=== PATIENT | female | born 1945 | race Caucasian/White ===

== ENCOUNTER 2019-03-23 09:24 | Inpatient (IN) | payer MEDICARE ==
[~2019-03-23] VITALS: Ht 144.8 cm; Wt 49.0 kg
[2019-03-23] MEDS ORDERED: TIOT18 INH (09:41)
[2019-03-23] MEDS ORDERED: Amlodipine Besy10 MG PO (09:42)
[2019-03-23] MEDS ORDERED: OMEPRAZOLE MAGN20 M1 PO (09:42)
[2019-03-23] MEDS ORDERED: ZESTRIL40 MG PO (09:42)
[2019-03-23] MEDS ORDERED: Zoloft25 MG PO (09:43)
[2019-03-23] MEDS ORDERED: Lovastatin40 MG PO (09:43)
[2019-03-23] MEDS ORDERED: Ventolin/Prove6.7 GM INH (09:43)
[2019-03-23 10:05] LABS: BASOPHILS ABSOLUTE AUTO 0.02 K/mm3 (0.00-0.23); BASOPHILS PERCENT AUTO 0 % (0-2); EOSINOPHILS ABSOLUTE AUTO 0.01 K/mm3 (0.00-0.68); EOSINOPHILS PERCENT AUTO 0 % (0-6); Hematocrit 34.3 % (33.0-51.0); Hemoglobin 11.2 g/dL (11.5-16.0); IMMATURE GRAN ABSOLUTE AUTO 0.11 K/mm3 (0.00-0.10); IMMATURE GRAN PERCENT AUTO 1 % (0-1); LYMPHOCYTES ABSOLUTE AUTO 1.13 K/mm3 (0.84-5.20); LYMPHOCYTES PERCENT AUTO 9 % (21-46); MONOCYTES ABSOLUTE AUTO 0.87 K/mm3 (0.16-1.47); MONOCYTES PERCENT AUTO 7 % (4-13); Mean Corpuscular HGB 27.9 pg (26.0-34.0); Mean Corpuscular HGB Conc 32.7 g/dL (31.5-36.5); Mean Corpuscular Volume 86 fL (80-100); Mean Platelet Volume 10.7 fL (9.1-12.4); NEUTROPHILS ABSOLUTE AUTO 10.25 K/mm3 (1.96-9.15); NEUTROPHILS PERCENT AUTO 83 % (41-73); Platelet Count 213 K/mm3 (150-400); RDW Coefficient Variation 12.9 % (11.7-14.2); RDW Standard Deviation 40.6 fL (35.1-46.3); Red Blood Cell Count 4.01 M/mm3 (3.80-5.20); White Blood Cell Count 12.39 K/mm3 (4.00-11.30)
[2019-03-23 10:17] LABS: Alanine Aminotransfer (ALT/SGP 26 U/L (12-78); Albumin, Blood 2.8 g/dL (3.4-5.0); Albumin/Globulin Ratio 0.7 (0.8-1.8); Alk Phos 114 U/L (50-136); Anion Gap 10 mmol/L (6-16); Aspartate Aminotrans (AST/SGOT 17 U/L (12-37); Bilirubin, Total 0.7 mg/dL (0.1-1.0); Blood Urea Nitrogen 22 mg/dL (8-24); Bun/Creatinine Ratio 33.4 (12.0-20.0); CO2, Blood 24 mmol/L (21-32); Calcium, Blood 8.6 mg/dL (8.5-10.1); Chloride, Blood 110 mmol/L (98-108); Creatinine, Blood 0.66 mg/dL (0.40-1.00); Globulin, Blood 4.3 g/dL (2.2-4.0); Glomerular Filtration Rate >60 (60-); Glucose, Blood 125 mg/dL (70-99); Potassium, Blood 3.4 mmol/L (3.5-5.5); Sodium, Blood 144 mmol/L (136-145); Total Protein, Blood 7.1 g/dL (6.4-8.2); Troponin I <0.015 ng/mL (0.000-0.040)
[2019-03-23] MEDS ORDERED: INCRUSE ELLI62.5 MCG INH (12:32)
[2019-03-23] MEDS ORDERED: Aspir 8181 MG PO (12:33)
[2019-03-23] MEDS ORDERED: VITAMIN D31000 UNIT PO (12:33)
--- NOTE | 2019-03-23 15:10 | NUR ---
PT ADMITTED FROM THE ER FOR PNEUMONIA, DR IVORY NOTIFIED THE PT IS HERE, ORIENTED PT TO THE ROOM AND CALL SYSTEM
--- NOTE | 2019-03-23 17:13 | NUR ---
SUMMARY PT ADMITTED FROM THE ER FOR PNEUMONIA, PT IS ALERT AND ORIENTED, ABLE TO STAND AND TRANSFER FROM THE GURNEY TO THE BED WITH MINIMAL ASSIST, PT HERE VISITING FROM [place], WILL GO BACK HOME TO [place] WHEN DISCHARGED, PT ABLE TO GET UP TO THE BATHROOM WITH THE WALKER WITH STANDBY ASSIST, PT SOB WITH ALL ACTIVITY, TAKES A FEW MINUTES TO RECOVER, THERAPY HAS ALREADY CAME TO WORK WITH THE PT, HER GRAND DAUGHTER HAS BEEN IN THE ROOM MOST OF THE TIME, PT IS PLEASANT AND COOPERATIVE WITH CARE, VSS, NO ACUTE CHANGES, WILL CONT TO MONITOR
[2019-03-23 19:34] LABS: Adenovirus Not Detected (NOT DETECT); Bordetella pertussis Not Detected (NOT DETECT); Chlamydophila pneumoniae Not Detected (NOT DETECT); Coronavirus 229E Not Detected (NOT DETECT); Coronavirus HKU1 Not Detected (NOT DETECT); Coronavirus NL63 Not Detected (NOT DETECT); Coronavirus OC43 Not Detected (NOT DETECT); Human Metapneumovirus Not Detected (NOT DETECT); Human Rhinovirus/Enterovirus Not Detected (NOT DETECT); Influenza A Not Detected (NOT DETECT); Influenza A/2009-H1 Not Detected (NOT DETECT); Influenza A/H1 Not Detected (NOT DETECT); Influenza A/H3 Not Detected (NOT DETECT); Influenza B Not Detected (NOT DETECT); Mycoplasma pneumoniae Not Detected (NOT DETECT); Parainfluenza Virus 1 Not Detected (NOT DETECT); Parainfluenza Virus 2 Not Detected (NOT DETECT); Parainfluenza Virus 3 Not Detected (NOT DETECT); Parainfluenza Virus 4 Not Detected (NOT DETECT); Respiratory Syncytial Virus Not Detected (NOT DETECT)
--- NOTE | 2019-03-23 21:20 | NUR ---
2120: LAB REFUSED PREVIOUSLY COLLECTE SPUTUM SAMPLE BASED ON "LOW QUALITY" PT EDUCATED REGARDING NEW SPUTUM SAMPLE REQUEST AND SPECIMEN CUP PLACED @ BEDSIDE; VERBALIZES UNDERSTANDING.
--- NOTE | 2019-03-24 04:35 | NUR ---
SUMMARY: ADMIT DAY 2 PNEUMONIA ON HOPSITALIST SERVICE. VSS, AFEBRILE, SL02 VIA NC (HOME BASELINE) MOIST MINIMALLY PRODUCTIVE COUGH; AWAIT SPUTUM SAMPLE COLLECTION. PT UP WITH SBA TO BSC, VOIDING WELL AND TOLERATING REG DIET. CONTINUE RT TREATMENTS, ANTIBIOTICS AND COLLECT SPUTUM SAMPLE.
[2019-03-24 05:30] LABS: BASOPHILS ABSOLUTE AUTO 0.02 K/mm3 (0.00-0.23); BASOPHILS PERCENT AUTO 0 % (0-2); EOSINOPHILS ABSOLUTE AUTO 0.21 K/mm3 (0.00-0.68); EOSINOPHILS PERCENT AUTO 3 % (0-6); Hematocrit 29.5 % (33.0-51.0); Hemoglobin 9.5 g/dL (11.5-16.0); IMMATURE GRAN ABSOLUTE AUTO 0.02 K/mm3 (0.00-0.10); IMMATURE GRAN PERCENT AUTO 0 % (0-1); LYMPHOCYTES ABSOLUTE AUTO 1.15 K/mm3 (0.84-5.20); LYMPHOCYTES PERCENT AUTO 17 % (21-46); MONOCYTES ABSOLUTE AUTO 0.64 K/mm3 (0.16-1.47); MONOCYTES PERCENT AUTO 10 % (4-13); Mean Corpuscular HGB 27.9 pg (26.0-34.0); Mean Corpuscular HGB Conc 32.2 g/dL (31.5-36.5); Mean Corpuscular Volume 87 fL (80-100); Mean Platelet Volume 10.9 fL (9.1-12.4); NEUTROPHILS ABSOLUTE AUTO 4.59 K/mm3 (1.96-9.15); NEUTROPHILS PERCENT AUTO 69 % (41-73); Platelet Count 182 K/mm3 (150-400); RDW Coefficient Variation 13.2 % (11.7-14.2); RDW Standard Deviation 41.8 fL (35.1-46.3); White Blood Cell Count 6.63 K/mm3 (4.00-11.30)
[2019-03-24 05:46] LABS: Anion Gap 6 mmol/L (6-16); Blood Urea Nitrogen 16 mg/dL (8-24); Bun/Creatinine Ratio 29.3 (12.0-20.0); CO2, Blood 25 mmol/L (21-32); Calcium, Blood 8.3 mg/dL (8.5-10.1); Chloride, Blood 116 mmol/L (98-108); Creatinine, Blood 0.55 mg/dL (0.40-1.00); Glomerular Filtration Rate >60 (60-); Glucose, Blood 96 mg/dL (70-99); Magnesium, Blood 1.8 mg/dL (1.6-2.4); Phosphorus, Blood 2.9 mg/dL (2.5-4.9); Potassium, Blood 4.1 mmol/L (3.5-5.5); Sodium, Blood 147 mmol/L (136-145)
--- NOTE | 2019-03-24 16:39 | NUR ---
SHIFT SUMMARY 5% DEXTROSE IN NS IV FLUID ADDED TODAY @ 75 ML/HR. SPUTUM SAMPLE SENT, AWAITING RESULTS. PT DESAT'D TODAY TO 84% WHEN WALKING WITH PHYSICAL THERAPY TODAY. SHE IS AMBULATING WELL IN THE [place] AND TO THE BATHROOM W/FWW. STILL SOB W/ACTIVITY. RECEIVING IV ANTIBIOTICS ORDERED. 2 LPM O2 @ BASELINE VIA NC. SHE DID REQUEST AN ENSURE HER APPETITE HAS BEEN POOR. WET COUGH. CALLS APPROPRIATELY. A&O X4.
--- NOTE | 2019-03-25 04:56 | NUR ---
SHIFT SUMMARY PT CONTINUES TO HAVE RIB PAIN RELATED TO COUGHING. PT RESPONDS WELL TO TYLENOL TX. PROVIDER CALLED FOR COUGH MEDS DUE TO CONTINUED COUGHING T/O SHIFT. PT RESPONDED WELL TO COUGH MED. PT CURRENTLY SLEEPING AND BREATHING EASY. CALL LIGHT IN REACH.
[2019-03-25 05:50] LABS: Albumin, Blood 2.4 g/dL (3.4-5.0); Anion Gap 10 mmol/L (6-16); Blood Urea Nitrogen 11 mg/dL (8-24); Bun/Creatinine Ratio 21.9 (12.0-20.0); CO2, Blood 26 mmol/L (21-32); Chloride, Blood 109 mmol/L (98-108); Glomerular Filtration Rate >60 (60-); Glucose, Blood 125 mg/dL (70-99); Phosphorus, Blood 3.5 mg/dL (2.5-4.9); Potassium, Blood 3.6 mmol/L (3.5-5.5); Sodium, Blood 145 mmol/L (136-145)
--- NOTE | 2019-03-25 16:17 | NUR ---
SHIFT SUMMARY PT'S IV FLUIDS DC'D. IV ANTIBIOTICS CONTINUE SCHEDULED. PLAN IS FOR HOPEFUL DISCHARGE TOMORROW. PT STATES SHE HAS RIB PAIN FROM COUGHING, WHICH IS MANAGED WELL WITH TYLENOL. SHE HAD A HOME O2 EVAL TODAY. SHE IS STILL SOB W/ACTIVITY, BUT THIS HAS IMPROVED. I HAVE ALSO BEEN GIVING HER ROBITUSSIN SYRUP FOR HER COUGHING SPELLS. WE HAVE BEEN AMBULATING HER TO THE BATHROOM WITH FWW.
--- NOTE | 2019-03-26 04:45 | NUR ---
SHIFT SUMMARY PT SLEPT WELL OFF AND ON THROUGHOUT THE NIGHT. CONTINUES TO BE SOB WITH EXERTION BUT DENIES SOB AT REST. ON 2.5 L O2 NC. OCCASSIONAL PRODUCTIVE COUGH WITH WHITE THICK SPUTUM. MEDICATED W/ ROBITUSSIN X 1, ALSO MEDICATED W/ TYLENOL X 1 FOR RIB PAIN FROM COUGHING. OVERALL, PT HAD UNEVENTFUL NIGHT. VSS. WILL CONTINUE TO MONITOR AND REPORT TO DAY RN.
[2019-03-26] MEDS ORDERED: DIABETIC S100 MG/5 M PO (11:47)
[2019-03-26] MEDS ORDERED: Vsl#3 Capsule1 EACH PO (11:48)
[2019-03-26] MEDS ORDERED: AZIT500 PO (11:48)
[2019-03-26] MEDS ORDERED: CEFU500T30 PO (11:49)
--- NOTE | 2019-03-26 13:01 | NUR ---
PT WAS DCD HOME TO [facility]. PT IS A RESIDENT OF [place] BUT WILL BE STAYING WITH HER DAUGHTER HERE UNTIL RETURNING HOME. MEDICATIONS WERE FAXED TO [facility] PER PT REQUEST. PT WILL BE FOLLOWING UP WITH HER PCP IN [place] WHEN SHE RETURNS HOME. ALL BELONGINGS SENT WITH PT. PT STABLE UPON DC.
== END 2019-03-26 12:55 | disposition home or self-care (01) | DRG 871 ==
LOC: ER 09:24 → MEDS 09:25 → ENPENDDIS 03-26 11:08 → MEDS 03-26 12:55
PROVIDERS: Emergency Medicine; ADMIT Internal Medicine
DX: A41.9 Sepsis, unspecified organism (principal); J96.21 Acute and chronic respiratory failure with hypoxia; J18.1 Lobar pneumonia, unspecified organism; J44.0 Chronic obstructive pulmonary disease with (acute) lower respiratory infection; E87.1 Hypo-osmolality and hyponatremia; E87.6 Hypokalemia; I25.10 Atherosclerotic heart disease of native coronary artery without angina pectoris; K21.9 Gastro-esophageal reflux disease without esophagitis; F32.9 Major depressive disorder, single episode, unspecified; Z86.73 Personal history of transient ischemic attack (TIA), and cerebral infarction without residual deficits; Z99.81 Dependence on supplemental oxygen; Z87.891 Personal history of nicotine dependence; E78.5 Hyperlipidemia, unspecified; I10 Essential (primary) hypertension
CPT/HCPCS: 0099U; 36415; 71046; 80048; 80053; 80069; 83605; 83735; 83880; 84100; 84484; 85025; 87040; 87070; 87205; 93005; 93010; 94640; 94644; 94760; 94761; 96361; 96365; 96367; 97110; 97116; 97162; 97165; 97530; 97535; 99285-25; A9270; G0378; J0456; J0696; J1650; J7030; J7050; J7070